=== PATIENT | male | born 1980 | race Caucasian/White ===

== ENCOUNTER 2017-03-25 02:02 | Emergency (ER) | payer SELFPAY ==
[~2017-03-25] VITALS: Ht 180.3 cm; Wt 100.0 kg
[2017-03-25 02:06] VITALS: TEMP 98.9
[2017-03-25 02:59] VITALS: BP 122/79; PULSE 61
== END 2017-03-25 03:00 | disposition home or self-care (01) ==
LOC: COL.ER 02:02
DX: T18.128A Food in esophagus causing other injury, initial encounter (principal)
CPT/HCPCS: J1610